=== PATIENT | female | born 1960 | race Caucasian/White ===

== ENCOUNTER 2016-04-16 12:11 | Inpatient (IN) ==
--- NOTE | 2016-04-15 21:10 | Discharge Summary ---
<Elliott Valdovinos - Last Filed: 04/20/16 14:58> - Discharge Diagnosis (1) Loosening of knee joint prosthesis Priority: Primary Status: Acute (2) Asthma Priority: Secondary Status: Chronic (3) Obesity Priority: Secondary Status: Chronic (4) Acute blood loss anemia Priority: Primary Status: Acute - Discharge Medications Home Medications: Aspirin Enteric Coated [Aspirin EC] 325 mg PO BID #42 tablet. 04/15/16 [Rx] OxyCODONE Immed Rel [Roxicodone 5 MG] 5 - 10 mg PO Q6HR PRN #40 tablet 04/15/16 [Rx] Aspirin 162 mg PO DAILY 04/16/16 [History] Budesonide/Formoterol 160/4.5 [Symbicort 160/4.5] 2 puff IH BIDR 04/16/16 [ History] Buspirone HCl [Buspar] 20 mg PO BID 04/16/16 [History] ClonazePAM [Klonopin] 1 mg PO QID PRN 04/16/16 [History] Trazodone HCl 100 mg PO HS 04/16/16 [History] Allergies/Adverse Reactions: Allergies ondansetron [From Zofran (as hydrochloride)] Adverse Reaction (Verified 11:15) Nausea Primary care physician: PCP NO - Patient Status Disposition: Home Health Service Condition: Good - Discharge Instructions Follow Up With: Elliott Valdovinos MD [Partnered Physician] - 05/15/16 9:10 am Kat Rg PAC [Physician Tail Ripper] - 04/25/16 10:15 am ([facility],PCP [Primary Care Provider] - Additional Instructions: Discharge Instructions: Total Knee Replacement Please call [facility] ([phone]), your Primary Care Physician, or report to the Emergency Room if you have any of the following symptoms: Nausea, vomiting, fever greater that 101.5, swelling, chest pain, shortness of breath, increased pain/redness/drainage/odor for your incision site, numbness/ tingling, or any other concerning symptoms. ACTIVITY:Weight-bearing as tolerated. You may progress off support (cruthches or walker) as tolerated. MEDICATIONS: Upon discharge resume your home medications. Take all the medications as prescribed. Take a stool softener if taking narcotic pain medications. Stool softeners are only effective if you drink enough fluids. Drink 6-8 glass of water or fluids a day, unless this is not allowed for another health problem. Despite using stool softeners, if you haven't had a bowel movement in 3 days, please switch to a gentle laxative. Gentle laxatives are sold over the counter. You should have a bowel movement within 24 hours, if not call the office. You will be discharged from the hospital with a prescription for pain medication. You are encouraged to decrease the use of narcotic pain medication as tolerated. Should you require a refill, please call the office. [facility] prescribes narcotic pain medication for only 4-6 weeks after surgery. If you require pain medication beyond this time periord, you may be referred to your Primary Care Physician or to the Pain Clinic for further evaluation. Plan ahead for refills on pain medication as many narcotics either need to be picked up at the office or mailed. It is best to call 48-72 hours in advance of needing a prescription refill so you don't run out of medication. To help control the post-operative pain, you may take NSAIDs (Aleve,Advil, Motrin, ibuprofen, naprosyn) or Tylenol as prescribed on the bottle in addition to the pain medication. ANTICOAGULATION (blood thinners): Continue your Aspirin, Lovenox or Coumadin as prescribed to help prevent a blood clot in the leg or in the lungs. As long as your incision remains dry and you tolerate the NSAIDs (Aleve, Advil, Motrin, ibuprofen, naprosyn), it is OK to use the NSAIDS while you are taking your anticoagulation medication. Should your incision start to drain, stop the NSAID and contact our office. Common symptoms of blood clot in the legs include: localized pain, swelling, calf tenderness, redness or discoloration of the skin. Blood clot in the lung symptoms include: shortness of breath, rapid pulse, sweating, and chest pain that worsens with deep breathing, coughing up blood, lightheadedness, feelings of anxiety. If you experience any of these symptoms notify your physician immediately, go to the emergency room, or if having trouble breathing, call 911. WOUND CARE: Leave the dressing on for 7 days. You may change the dressing if it becomes saturated greater than 50%. You can shower but not a tub bath or submerge your incision in water. Wash your hands with antibacterial soap, rinse and dry prior to any wound care. If you have noah the visiting nurse or rehab facility can remove the stapes 10-14 days after surgery and place steri- strips across the wound. Leave the steri-strips in place until they fall off on their won. You may let water from the shower run on top of the steri-stirips. If you do not have a visiting nurse or rehab facility, you will need to return to the office at 10-14 days for the noah to be removed. FOLLOW-UP: Please follow up with your surgeon in the orthopedic clinic in 4 weeks from the day of surgery. If you have noah that need to be removed, you will need to come back to the office in 10-14 days from the day of surgery. - Hospital Course Hospital course: Ms. Gutiérrez is a 56 year old female - Time Spent with Patient Total time spent providing and/or coordinating discharge services: <Kat Rg - Last Filed: 04/26/16 12:36> Date of Encounter: 04/21/16 Time of Encounter: 12:35 - Discharge Diagnosis (1) Loosening of knee joint prosthesis Status: Acute Qualifiers: Qualified Code(s): T84.038D - Mechanical loosening of other internal prosthetic joint, subsequent encounter; Z96.659 - Presence of unspecified artificial knee joint (2) Asthma Priority: Secondary Status: Chronic Qualifiers: Qualified Code(s): J45.909 - Unspecified asthma, uncomplicated (3) Obesity Priority: Secondary Status: Chronic Qualifiers: Qualified Code(s): E66.9 - Obesity, unspecified Primary care physician: PCP NO - Patient Status Functional capacity at discharge: uses cane/walker Overall status at discharge: patient is back to baseline - Diet and Activity Diet: advance to your usual diet - Hospital Course Hospital course: Ms. Gutiérrez is a 56 year old female - Time Spent with Patient Total time spent providing and/or coordinating discharge services:
--- NOTE | 2016-04-16 12:20 | History & Physical Report ---
Date of Encounter: 04/16/16 Time of Encounter: 12:19 24 Hour HP Update - Instructions Instructions: If the History and Physical is less than 30 days old and was completed prior to A.M. admission and or procedure and has NOT been updated on calendar day of procedure please complete this update prior to performing procedure. - Update Patient reports changes in Medical Condition: No Changes in assessment/condition: No Changes in Medication: No Preop tests/diagnostics Reviewed: Yes Surgery Remains Indicated: Yes Consent for Planned Operative Procedure(s) Verified: Yes - Pre-Operative Checklist Preoperative Checklist Indicated: No Prophylactic Antibiotic Ordered: Yes Is VTE Prophylaxis Indicated?: Yes
[2016-04-16] MEDS ORDERED: CeFAZolin Pre 2,000 MG/100 ML 2,000 MG/100 ML BAG IVPB ONE (12:27)
[2016-04-16] MEDS ORDERED: Albuterol 2.5 MG/3 ML NEBULIZER IH ONE (12:27)
[2016-04-16] MEDS ORDERED: Ringers Solution, Lactated 1,000 ML IVC SCH (12:30)
[2016-04-16] MEDS ORDERED: *HR* Midazolam HCl 2 MG/2 ML VIAL ONE ×2 (13:30)
[2016-04-16] MEDS ORDERED: *HR* Propofol 200 MG/20 ML VIAL IVP ONE (13:30)
[2016-04-16] MEDS ORDERED: *HR* FentaNYL (PF) 100 MCG/2 ML VIAL ONE (13:30)
[2016-04-16] MEDS ORDERED: diazePAM 5 MG TABLET PO ONE (13:54)
[2016-04-16] MEDS ORDERED: Famotidine 20 MG/2 ML VIAL IVP ONE (13:54)
--- NOTE | 2016-04-16 13:58 | Anesthesia Evaluation PreOp ---
Date of Encounter: 04/16/16 Time of Encounter: 13:50 - Past History Planned Operation: Left TKA Revision Cardiac History: Denies any Significant Hx Pulmonary History: Asthma CARE TRANSITIONS MANAGER History: Denies Any Significant HX Other Medical History: Other (Anxiety) Anesthesia History: No Prior Anesthetic Complications : No Alcohol Use: none Drug use: none Medications and Allergies Aspirin Enteric Coated [Aspirin EC] 325 mg PO BID #42 tablet. 04/15/16 [Rx] OxyCODONE Immed Rel [Roxicodone 5 MG] 5 - 10 mg PO Q6HR PRN #40 tablet 04/15/16 [Rx] Aspirin 162 mg PO DAILY 04/16/16 [History] Budesonide/Formoterol 160/4.5 [Symbicort 160/4.5] 2 puff IH BIDR 04/16/16 [ History] Buspirone HCl [Buspar] 20 mg PO BID 04/16/16 [History] ClonazePAM [Klonopin] 1 mg PO QID PRN 04/16/16 [History] Oxycodone HCl/Acetaminophen [Percocet 5-325 mg Tablet] 1 each PO Q6H PRN [History] Trazodone HCl 100 mg PO HS 04/16/16 [History] Allergies No Known Allergies Allergy (Verified 04/16/16 13:34) - Meds/Allergy Pre-op Review Medications Reviewed: Yes Allergies Reviewed: Yes Beta Blockers on Current Med List: No Anesthesia Results - Labs Laboratory Tests 04/04/16 04/04/16 11:05 11:05 Hgb 13.7 Hct 42.1 Sodium 137 Potassium 4.6 H BUN 19 Creatinine 0.84 Anesthesia Exam O2 Sat Height 1.65 m Height 1.65 m Height 1.65 m Weight 98.43 kg Weight 98.43 kg Weight 98.43 kg O2 Sat by Pulse Oximetry 97 O2 Sat by Pulse Oximetry 97 Vital Signs Temp Pulse Resp BP Pulse Ox 98.2 F 88 18 114/73 97 04/16/16 12:31 04/16/16 12:31 04/16/16 12:31 04/16/16 12:31 04/16/16 12:31 Height: 5'4 Weight: 216 lbs NPO (# of Hours): MN - HEENT Pupil (Motor): Pupils equal, EOMI Mallampati: II Teeth: Normal Oral Opening: Greater than 3 - CARE TRANSITIONS MANAGER LOC: Oriented CARE TRANSITIONS MANAGER Motor: Normal RUE, Normal LUE, Normal RLE, Normal LLE, Normal Face CARE TRANSITIONS MANAGER Sensory: Normal: RUE, LUE, RLE, LLE, Face - Cardiac Rhythm: Regular Murmur: None JVD: No Carotid Bruit: No - Pulmonary Breath Sounds: bilateral Clear Respiratory Effort: Symmetrical Anesthesia Assess/Plan ASA Score: 2 Modified Pam Scale for Level of Consciousness: Cooperative, oriented, and tranquil Anesthetic Plan: General, Regional Monitoring Plan: Standard Monitors Recovery Plan: PACU (Discussed GA and RA, agrees to proceed)
[2016-04-16] MEDS ORDERED: Lidocaine -MPF 2% 2 ML VIAL ONE (14:17)
[2016-04-16] MEDS ORDERED: Tetracaine/PF 20 MG/2 ML AMPUL SPINA ONE (14:21)
--- NOTE | 2016-04-16 14:38 | Anesthesia Procedures ---
Date of Encounter: 04/16/16 Time of Encounter: 14:00 Procedures: Anesthesia - Nerve Block Procedure Date: 04/16/16 Time: 14:35 Pre-op Diagnosis: Loosening Left TKA Surgical Procedure: TKA Revision Checklist: Correct Patient Identifier Correct side: Left Blood Thinner: No Monitor Applied: EKG, BP, Pulse Oximetry Supplemental Oxygen via Nasal Cannula (L/min): 2 Sedation: Versed (mg): 2 Sedation: Fentanyl (mcg): 100 Indication: Post Op Analgesia Pre-op Neuro Deficits: No Block Type: Femoral Catheter placed: No Depth at skin (cm): 3 Sterile Technique: Yes Ultrasound used: Yes Anatomy identified: Yes Visual spread of Local: Yes Neuro Stimulation: Yes Nerve Stimulator Range: 0.2 - 0.4 mA Blood on Needle Aspiration: No Smooth Injection of Local: Yes Pain with Injection of Local: No Prep: Chlorhexadine Needle: 22 x 50 mm Stimuplex Local: Tetracaine (40), Other (Bupivacaine 0.5%) Volume (cc): 30 Number of Attempts: 1 Complications: None/effective block Vitals: Vital Signs/O2 Sat/Glucose, Most Current Temp Pulse Resp BP Pulse Ox 04/16/16 14:30 78 16 129/74 97 04/16/16 13:02 18 114/73 97 04/16/16 12:31 98.2 F 88 18 114/73 97
[2016-04-16] MEDS ORDERED: *HR* HYDROmorphone (PF) 1 MG/ML SYRINGE IVP PRN (15:09)
[2016-04-16] MEDS ORDERED: *HR* HYDROmorphone 2 MG/ML SYRINGE ONE (15:38)
--- NOTE | 2016-04-16 16:07 | Orthopedic Operative Note ---
Date of procedure: 04/16/16 Pre-op diagnosis: Aseptic loosening left total knee, significant synovitis. Post-op diagnosis: same Procedure: Procedure: Left revision total knee Estimated blood loss: 500 mL Hardware: Biomet 360 femur: Left 65 left lateral 5 mm distal augment, 16 x 80 stem. Tibia 71, extra small OsteoSet sleeve, 12 x 40 stem, 20 constrained Diana , 37 patella. Exam Under anesthesia: Full extension and flexion no instability Procedural Notes: Significant synovitis loosening of femur and tibia.. Operative procedure: The patient was brought to the operating room and placed on the operating room table. After general anesthesia was administered the operative knee was examined. Findings were noted in the exam under anesthesia. The operative extremity was prepped and draped in sterile surgical fashion. The patient received IV antibiotics prior to skin incision. A standard midline incision was made centered over the patella through the old incision. The incision was made through the skin and subcutaneous tissue. A medial parapatellar tendon approach was performed. Care was taken to preserve tissue along the medial aspect of the patella. And to protect the patella tendon. The deep MCL was released off the medial tibia. The infra patella fat pad was excised. Fluid was encountered this was normal joint fluid, Cultures were obtained and gram sent. Patient does have extensive synovitis as well as excised with an extensive synovectomy. The knee was brought into flexion the poly-was removed. The interface between the patient's femoral component and distal femur were disrupted with a osteotome and oscillating saw. Femoral component was removed removed patient had bone loss on the distal lateral femur. Attention was then turned to the tibial component. The same technique was used to remove the tibial component by disrupting the interface between the patient's tibial component and the patients proximal tibia. The tibial component was loose, was removed without significant bone loss. The tibia was sized to a 71, it was broached to a extra small sleeve, it fit a 12 x 40 stem. Trial had good fit and fixation. The femur was sized to a 65, was reamed up to a 14 x 80. The finishing guide was seated and the box cut was made. The trial had good fit and fixation. Both trial components were seated and the 20 constrained Diana was seated and secured. The knee had full flexion and full extension with no instability. The patella was everted, the patella was transected below the patella component. It was sized to a 37 the guide was seated the lug holes are drilled. Patella had excellent patella tracking. The trial components were removed. The knee sat for 2 minutes with a Betadine saline solution. It was irrigated out with 2 L of pulse irrigation. The components were assembled on the back table, the tibia cemented first followed by the femur. The 20 constrained liner was seated and secure. The knee was brought to full extension while the cement hardened. The patella was cemented and held in place with patellar holding clamp. After the cement hardened the knee was irrigated out again. The extensor mechanism was closed with a running #2 Fiberwire suture and a running #2 PDS suture. The deep tissue was irrigated and closed deep with #1 PDS suture superficially with 0 PDS suture. The skin was closed with Dermabond and skin noah. The patient was placed in a sterile dressing and postoperative brace. They were extubated and transferred to recovery room in stable condition. Anesthesia: GETA Surgeon: Elliott Valdovinos Condition: stable Disposition: PACU
[2016-04-16 17:24] LABS: Hematocrit 35.8 % (35.3-44.9); Hemoglobin 11.6 g/dL (11.5-15.4)
[2016-04-16] MEDS ORDERED: *HR* Promethazine 25 MG/ML VIAL ONE (17:47)
[2016-04-16] MEDS ORDERED: *HR* Promethazine 25 MG/ML VIAL IVP PRN (17:54)
[2016-04-16] MEDS ORDERED: *HR* Enoxaparin 30 MG/0.3 ML SYRINGE SQ SCH (18:00)
--- NOTE | 2016-04-16 18:09 | Anesthesia Evaluation Post Op ---
Date of Encounter: 04/16/16 Time of Encounter: 18:07 - Vital Signs Vital Signs: Vital Signs/O2 Sat/Glucose, Most Current Temp Pulse Resp BP Pulse Ox 04/16/16 18:05 97.1 F L 76 16 121/78 95 04/16/16 17:55 97.0 F L 71 16 126/84 95 04/16/16 17:45 97.0 F L 67 16 120/74 97 04/16/16 17:35 97.0 F L 74 16 154/87 97 04/16/16 17:25 97.0 F L 83 16 153/94 97 04/16/16 17:15 97.0 F L 75 16 133/70 96 04/16/16 17:05 97.0 F L 91 16 136/62 93 L 04/16/16 16:55 84 16 105/64 98 04/16/16 16:45 105 16 145/76 96 04/16/16 16:35 97.2 F L 96 12 141/81 94 L 04/16/16 14:55 73 16 123/71 98 04/16/16 14:38 76 16 112/67 98 04/16/16 14:30 78 16 129/74 97 - Lungs Lungs: Clear Ascult./Percussion - Airway Airway: Non-obstructed - Cardiovascular Regular Rate - Mental Status Mental Status: Alert & Oriented, Answers Appropriately, Asleep with brisk response to light stimulation - Pain Pain Scale: 0 ('just some pressure') Pain Scale used: Numeric (1 - 10) - Nausea Vomiting Nausea Vomiting: Responds to treatment with IV Meds - Hydration Hydration: Ice chips, Has not voided - Discharge PostOp Status: Transfer Patient to floor Anes Supervising Prov Stmt: Pt seen/evaluated, Vss and pt has met criteria for discharge to floor. - MD Kristina
[2016-04-16] MEDS ORDERED: Naloxone 0.4 MG/ML INJ IVP PRN (18:12)
[2016-04-16] MEDS ORDERED: Temazepam 15 MG CAPSULE PO PRN (18:12)
[2016-04-16] MEDS ORDERED: Sennosides 8.6 MG TABLET PO PRN (18:12)
[2016-04-16] MEDS ORDERED: *HR* OxyCODONE Immed Rel 5 MG TABLET PO PRN (18:12)
[2016-04-16] MEDS ORDERED: MOM Conc 10 ML UD.LIQ PO PRN (18:12)
[2016-04-16] MEDS ORDERED: Ondansetron 4 MG/2 ML VIAL IVP PRN (18:12)
[2016-04-16] MEDS ORDERED: Albuterol Neb 1.25 MG/3 ML VIAL IH ONE (18:12)
[2016-04-16] MEDS: Ringers Solution, Lactated 1,000 ML IVC SCH (18:47)
[2016-04-16] MEDS: BUSPIRONE HCL PO SCH (20:23)
[2016-04-16] MEDS: traZODone 50 MG TABLET PO SCH (20:23)
--- NOTE | 2016-04-16 20:25 | Event Note ---
Date of Encounter: 04/16/16 Time of Encounter: 18:00 Patient was brought from PACU with low resps and I went to evaluate patient. She was lethargic, with shallow breathing. Phenergan was given in PACU. Narcan was given, patient was more responsive and breathing on her own within 5 minutes of medication implementation. Will monitor closely.
[2016-04-16] MEDS ORDERED: BUSPIRONE HCL 20 MG PO SCH (21:00)
[2016-04-16] MEDS: Budesonide/Formoterol 160/4.5 MDI IH SCH (21:01)
[2016-04-16] MEDS: ceFAZolin 2,000 MG in D5% in Water 100 ML IVPB SCH (23:35)
[2016-04-17] MEDS: *HR* OxyCODONE Immed Rel 5 MG TABLET PO PRN ×4 (00:51→19:20)
[2016-04-17] MEDS: clonazePAM 1 MG TABLET PO PRN ×3 (05:47→19:50)
[2016-04-17 06:02] LABS: Hematocrit 33.5 % (35.3-44.9); Hemoglobin 11.1 g/dL (11.5-15.4)
[2016-04-17] MEDS: Ringers Solution, Lactated 1,000 ML IVC SCH (06:13)
[2016-04-17] MEDS: ceFAZolin 2,000 MG in D5% in Water 100 ML IVPB SCH (06:14)
[2016-04-17] MEDS: *HR* Enoxaparin 30 MG/0.3 ML SYRINGE SQ SCH ×2 (06:14→18:17)
[2016-04-17 06:20] LABS: BUN/Creatinine Ratio 14 (6-26); Blood Urea Nitrogen 10 mg/dL (7-20); Carbon Dioxide 24 mEq/L (19-29); Chloride 104 mEq/L (98-109); Glucose 156 mg/dL (70-99); Osmolality,Calculated 286 (280-300); Potassium 4.3 mEq/L (3.5-4.5); Sodium 137 mEq/L (136-145); eGFR For African Americans > 60 (> 60); eGFR For Non-African Americans > 60 (> 60)
--- NOTE | 2016-04-17 06:38 | Orthopedics Progress Note ---
Date of Encounter: 04/17/16 Time of Encounter: 06:37 - Assessment and Plan (1) Loosening of knee joint prosthesis Current Visit: Yes Status: Acute Qualifiers: Encounter type: subsequent encounter Qualified Code(s): T84.038D - Mechanical loosening of other internal prosthetic joint, subsequent encounter; Z96.659 - Presence of unspecified artificial knee joint (2) Asthma Current Visit: Yes Status: Chronic Qualifiers: Asthma severity: unspecified severity Asthma complication type: uncomplicated Qualified Code(s): J45.909 - Unspecified asthma, uncomplicated (3) Obesity Current Visit: Yes Status: Chronic Qualifiers: Obesity type: unspecified obesity type Obesity severity: unspecified obesity severity Qualified Code(s): E66.9 - Obesity, unspecified Subjective Interval history: Patient was seen this morning had a fall earlier incision intact dressing change. Afebrile vital signs stable. Operative extremity: Neurovascularly intact Dressing clean dry and intact Calves nontender Assessment and plan: Continue with postoperative care Hematocrit 33 Objective Vital signs: Vital Signs Temp Pulse Resp BP Pulse Ox 04/17/16 04:03 97.6 F 67 15 97/60 96 04/16/16 23:08 97.7 F 65 12 100/63 97 04/16/16 21:30 97.8 F 67 12 102/66 04/16/16 21:01 20 98 04/16/16 20:26 97.4 F L 72 14 102/65 97 04/16/16 19:33 97.9 F 65 12 110/72 99 04/16/16 19:10 97.9 F 66 14 119/78 99 04/16/16 18:48 97.8 F 63 14 124/74 99 04/16/16 18:27 97 04/16/16 18:18 97.8 F 76 7 117/81 96 04/16/16 18:05 97.1 F L 76 16 121/78 95 04/16/16 17:55 97.0 F L 71 16 126/84 95 04/16/16 17:45 97.0 F L 67 16 120/74 97 04/16/16 17:35 97.0 F L 74 16 154/87 97 04/16/16 17:25 97.0 F L 83 16 153/94 97 04/16/16 17:15 97.0 F L 75 16 133/70 96 04/16/16 17:05 97.0 F L 91 16 136/62 93 L 04/16/16 16:55 84 16 105/64 98 04/16/16 16:45 105 16 145/76 96 04/16/16 16:35 97.2 F L 96 12 141/81 94 L 04/16/16 14:55 73 16 123/71 98 04/16/16 14:38 76 16 112/67 98 04/16/16 14:30 78 16 129/74 97 04/16/16 13:02 18 114/73 97 04/16/16 12:31 98.2 F 88 18 114/73 97 Intake and Output 04/16/16 04/16/16 04/17/16 15:59 23:59 07:59 Intake Total 100 / 100 1100 / 1100 Output Total 900 / 900 300 / 300 Balance 100 / 100 -900 / -900 800 / 800 Intake: IV Fluids 100 / 100 1100 / 1100 Lactated Ringers 1,000 ML 1000 / 1000 @ 75 mls/hr IVC .[id number] BERNARD Rx#:[id number] Ancef 2,000 MG In 100 / 100 Dextrose 5% 100 ML @ 200 mls/hr IVPB Q8H BERNARD Rx#: [id number] Ancef Premix 2,000 MG/100 100 / 100 ML 2,000 mg In 100 ml @ 200 mls/hr IVPB PREOP ONE Rx#:[id number] Output: Urine 400 / 400 300 / 300 Estimated Blood Loss 500 / 500 Other: Weight 98.43 kg - Labs CBC & BMP: 04/17/16 05:12 04/17/16 05:12 Labs: Abnormal lab results Hgb 11.1 g/dL (11.5-15.4) L 04/17/16 05:12 Hct 33.5 % (35.3-44.9) L 04/17/16 05:12 Glucose 156 mg/dL (70-99) H 04/17/16 05:12 - VTE Documentation of Mechanical Device: Venous foot pump, device Consult Discharge Plan - Plan Referrals: NO,PCP [Primary Care Provider] -
[2016-04-17] MEDS: BUSPIRONE HCL PO SCH ×2 (08:06→19:51)
[2016-04-17] MEDS: Aspirin 81 MG TAB.CHEW PO SCH (08:06)
[2016-04-17] MEDS: Budesonide/Formoterol 160/4.5 MDI IH SCH ×2 (10:44→21:11)
[2016-04-17] MEDS: Acetaminophen 325 MG TABLET PO PRN ×2 (10:56→15:03)
[2016-04-17] MEDS: Ketorolac 30 MG/ML VIAL IVP PRN ×2 (11:33→18:17)
[2016-04-17] MEDS ORDERED: Scopolamine Patch 1.5 MG PATCH.TD72 TD ONE (11:39)
[2016-04-17] MEDS ORDERED: 0.9 % Sodium Chloride 1,000 ML IVC ONE (15:12)
[2016-04-17 16:19] LABS: Hematocrit 32.9 % (35.3-44.9); Hemoglobin 10.8 g/dL (11.5-15.4)
[2016-04-17] MEDS: traZODone 50 MG TABLET PO SCH (19:51)
[2016-04-17 20:50] LABS: Hematocrit 31.5 % (35.3-44.9); Hemoglobin 10.1 g/dL (11.5-15.4)
[2016-04-18] MEDS: Ketorolac 30 MG/ML VIAL IVP PRN (00:32)
[2016-04-18] MEDS: *HR* OxyCODONE Immed Rel 5 MG TABLET PO PRN ×3 (02:59→21:04)
[2016-04-18] MEDS: Ringers Solution, Lactated 1,000 ML IVC SCH ×3 (03:01→19:27)
[2016-04-18] MEDS: clonazePAM 1 MG TABLET PO PRN ×2 (05:43→15:41)
[2016-04-18] MEDS: BUSPIRONE HCL PO SCH ×2 (05:44→21:04)
[2016-04-18 06:06] LABS: Hemoglobin 9.5 g/dL (11.5-15.4)
[2016-04-18 06:18] LABS: BUN/Creatinine Ratio 19 (6-26); Blood Urea Nitrogen 14 mg/dL (7-20); Calcium 8.6 mg/dL (8.6-10.8); Carbon Dioxide 25 mEq/L (19-29); Chloride 107 mEq/L (98-109); Glucose 134 mg/dL (70-99); Osmolality,Calculated 290 (280-300); Sodium 139 mEq/L (136-145); eGFR For African Americans > 60 (> 60); eGFR For Non-African Americans > 60 (> 60)
--- NOTE | 2016-04-18 07:41 | Orthopedics Progress Note ---
Date of Encounter: 04/18/16 Time of Encounter: 07:40 - Assessment and Plan (1) Loosening of knee joint prosthesis Current Visit: Yes Status: Acute Qualifiers: Encounter type: subsequent encounter Qualified Code(s): T84.038D - Mechanical loosening of other internal prosthetic joint, subsequent encounter; Z96.659 - Presence of unspecified artificial knee joint (2) Asthma Current Visit: Yes Status: Chronic Qualifiers: Asthma severity: unspecified severity Asthma complication type: uncomplicated Qualified Code(s): J45.909 - Unspecified asthma, uncomplicated (3) Obesity Current Visit: Yes Status: Chronic Qualifiers: Obesity type: unspecified obesity type Obesity severity: unspecified obesity severity Qualified Code(s): E66.9 - Obesity, unspecified Subjective Interval history: Patient was seen this morning had a fall earlier incision intact dressing change. Afebrile vital signs stable. Operative extremity: Neurovascularly intact Patient with bleeding overnight pulled a stable re-stapled under sterile conditions today. Calves tender Assessment and plan: Continue with postoperative care obtained Doppler hematocrit 29 Objective Vital signs: Vital Signs Temp Pulse Resp BP Pulse Ox 04/18/16 05:14 98.0 F 88 16 103/69 99 04/18/16 02:56 100/67 04/18/16 00:26 97.9 F 79 16 97/63 97 04/17/16 21:51 97.6 F 97 17 115/71 97 04/17/16 21:11 16 97 04/17/16 19:18 115/71 04/17/16 17:27 98/61 04/17/16 17:20 84/54 04/17/16 17:18 88/51 04/17/16 16:00 97.9 F 76 18 94/62 97 04/17/16 15:20 98/64 04/17/16 14:58 90 92/49 04/17/16 14:51 80 93/59 04/17/16 10:54 98.0 F 80 18 94/63 97 04/17/16 10:44 16 98 04/17/16 10:18 103/65 04/17/16 08:06 99 Intake and Output 04/17/16 04/17/16 04/18/16 15:59 23:59 07:59 Intake Total 200 / 200 1000 / 1000 Output Total 500 / 500 Balance 200 / 200 500 / 500 Intake: IV Fluids 1000 / 1000 0.9 % Sodium Chloride 1, 1000 / 1000 000 ML @ 3750 mls/hr IVC .Q16M ONE Rx#:[id number] Oral 200 / 200 Output: Urine 500 / 500 Other: Meal Lunch Percent of Meal Consumed 100% # Voids 1 1 - Labs CBC & BMP: 04/18/16 05:52 04/18/16 05:52 Labs: Abnormal lab results Hgb 9.5 g/dL (11.5-15.4) L 04/18/16 05:52 Hct 29.0 % (35.3-44.9) L 04/18/16 05:52 Glucose 134 mg/dL (70-99) H 04/18/16 05:52 - VTE Documentation of Mechanical Device: Venous foot pump, device Consult Discharge Plan - Plan Referrals: Elliott Valdovinos MD [Partnered Physician] - 05/15/16 9:10 am Kat Rg PAC [Physician Dinkey Motor Operator] - 04/25/16 10:15 am [facility],PCP [Primary Care Provider] -
[2016-04-18] MEDS: Budesonide/Formoterol 160/4.5 MDI IH SCH ×2 (08:05→20:27)
[2016-04-18] MEDS: Aspirin 81 MG TAB.CHEW PO SCH (08:27)
[2016-04-18] MEDS: *HR* HYDROmorphone (PF) 1 MG/ML SYRINGE IVP PRN ×2 (08:46→13:26)
[2016-04-18] MEDS: *HR* HYDROmorphone 2 MG/ML SYRINGE IVP PRN ×2 (17:13→23:36)
[2016-04-18] MEDS ORDERED: *HR* LORazepam 2 MG/ML VIAL IVP PRN (19:13)
[2016-04-18] MEDS: traZODone 50 MG TABLET PO SCH (21:04)
[2016-04-19] MEDS: *HR* OxyCODONE Immed Rel 5 MG TABLET PO PRN ×3 (03:44→21:12)
[2016-04-19] MEDS: Ringers Solution, Lactated 1,000 ML IVC SCH (03:48)
[2016-04-19] MEDS: Ketorolac 30 MG/ML VIAL IVP PRN (04:10)
[2016-04-19] MEDS: Aspirin 81 MG TAB.CHEW PO SCH (07:56)
[2016-04-19] MEDS: BUSPIRONE HCL PO SCH ×2 (07:56→21:11)
[2016-04-19] MEDS: Budesonide/Formoterol 160/4.5 MDI IH SCH ×2 (08:12→22:47)
--- NOTE | 2016-04-19 08:17 | Orthopedics Progress Note ---
Date of Encounter: 04/19/16 Time of Encounter: 08:16 - Assessment and Plan (1) Loosening of knee joint prosthesis Current Visit: Yes Status: Acute Qualifiers: Encounter type: subsequent encounter Qualified Code(s): T84.038D - Mechanical loosening of other internal prosthetic joint, subsequent encounter; Z96.659 - Presence of unspecified artificial knee joint (2) Asthma Current Visit: Yes Status: Chronic Qualifiers: Asthma severity: unspecified severity Asthma complication type: uncomplicated Qualified Code(s): J45.909 - Unspecified asthma, uncomplicated (3) Obesity Current Visit: Yes Status: Chronic Qualifiers: Obesity type: unspecified obesity type Obesity severity: unspecified obesity severity Qualified Code(s): E66.9 - Obesity, unspecified Subjective Interval history: Patient was seen this morning had a fall earlier incision intact dressing change. Afebrile vital signs stable. Operative extremity: Neurovascularly intact Patient with minimal bleeding overnight Nontender calves Assessment and plan: Continue with postoperative care Objective Vital signs: Vital Signs Temp Pulse Resp BP Pulse Ox 04/19/16 08:13 16 99 04/19/16 04:58 98.6 F 109 16 101/69 97 04/19/16 00:40 98.6 F 102 15 105/68 92 L 04/18/16 21:27 98.2 F 108 15 103/69 99 04/18/16 20:28 18 97 04/18/16 16:02 118/75 04/18/16 14:28 98 F 105 16 117/68 95 04/18/16 13:25 103 115/72 04/18/16 11:05 99 93/55 04/18/16 08:30 78 100/64 Intake and Output 04/18/16 04/19/16 04/19/16 23:59 07:59 15:59 Intake Total 1870 / 1870 1800 / 1800 Balance 1870 / 1870 1800 / 1800 Intake: IV Fluids 1000 / 1000 1000 / 1000 Lactated Ringers 1,000 ML 1000 / 1000 1000 / 1000 @ 125 mls/hr IVC .Q8H B[facility]ARD Rx#:[id number] Oral 870 / 870 800 / 800 Other: Meal Dinner Percent of Meal Consumed 100% # Voids 1 - Labs CBC & BMP: 04/18/16 05:52 04/18/16 05:52 Labs: Abnormal lab results Hgb 9.5 g/dL (11.5-15.4) L 04/18/16 05:52 Hct 29.0 % (35.3-44.9) L 04/18/16 05:52 Glucose 134 mg/dL (70-99) H 04/18/16 05:52 - VTE Documentation of Mechanical Device: Venous foot pump, device Consult Discharge Plan - Plan Referrals: Elliott Valdovinos MD [Partnered Physician] - 05/15/16 9:10 am Kat Rg PAC [Physician Fabrication Lead] - 04/25/16 10:15 am [facility],PCP [Primary Care Provider] -
[2016-04-19 08:22] LABS: Hemoglobin 8.4 g/dL (11.5-15.4)
[2016-04-19 08:32] LABS: BUN/Creatinine Ratio 10 (6-26); Blood Urea Nitrogen 8 mg/dL (7-20); Calcium 8.8 mg/dL (8.6-10.8); Carbon Dioxide 25 mEq/L (19-29); Chloride 102 mEq/L (98-109); Glucose 170 mg/dL (70-99); Osmolality,Calculated 286 (280-300); Sodium 137 mEq/L (136-145); eGFR For African Americans > 60 (> 60); eGFR For Non-African Americans > 60 (> 60)
[2016-04-19 08:33] LABS: Potassium 4.1 mEq/L (3.5-4.5)
[2016-04-19] MEDS ORDERED: Furosemide 20 MG/2 ML VIAL IV ONE (10:09)
[2016-04-19] MEDS ORDERED: 0.9 % Sodium Chloride 250 ML IVC PRN (10:09)
[2016-04-19] MEDS ORDERED: Furosemide 20 MG/2 ML VIAL IVP ONE ×2 (10:15→17:30)
[2016-04-19] MEDS: clonazePAM 1 MG TABLET PO PRN (15:30)
[2016-04-19] MEDS: *HR* HYDROmorphone 2 MG/ML SYRINGE IVP PRN ×3 (15:38→22:45)
--- NOTE | 2016-04-19 17:53 | Venous Imaging Report ---
LE Venous Duplex Patient Name:Bea Gutiérrez Order Number:[id number] Procedure Date:04/18/2016 Date:1960ge:56 yrs Gender:Female Location:[facility] Room #: 3NE25 Ramp Jockey:Ghazal Matamoros Referring MD:Elliott Valdovinos MD art therapy specialist:None Reading MD:Raoul Villareal MD Primary Indications:r/o DVT Secondary Indications: Risk Factors Yes/No Hx of Superficial Phlebitis Recent knee surgery-LLE Impressions: Normal left lower extremity deep and superficial venous exam. Normal contralateral common femoral vein. Findings Prior Study: No prior study available for comparison. Lower Extremity Venous Duplex Side Vein Compress Spontaneous Flow Augment Diameter (cm) Depth (cm) Left Distal Iliac Normal Yes Phasic Yes Left Common Femoral Normal Yes Phasic Yes Left Superficial Femoral Normal Yes Phasic Yes Left Popliteal Normal Yes Phasic Yes Left Posterior Tibial Normal Yes Phasic Yes Left Peroneal Normal Yes Phasic Yes Left Saphenofemoral [place] Normal Yes Phasic Yes Left Great Saphenous Normal Yes Phasic Yes Left Lesser Saphenous Normal Yes Phasic Yes Right Common Femoral Normal Yes Phasic Yes Updated by Roaul Villareal MD on 04/19/2016 5:49:51 PM electronically signed on 04/19/2016 5:50:15 PM with status of Final
[2016-04-19] MEDS ORDERED: 0.9 % Sodium Chloride 250 ML ONE (20:14)
[2016-04-19] MEDS: traZODone 50 MG TABLET PO SCH (21:12)
[2016-04-20] MEDS: *HR* OxyCODONE Immed Rel 5 MG TABLET PO PRN ×4 (04:09→17:14)
[2016-04-20 06:29] LABS: Hematocrit 31.1 % (35.3-44.9)
[2016-04-20 06:30] LABS: Hemoglobin 10.3 g/dL (11.5-15.4)
--- NOTE | 2016-04-20 06:31 | Orthopedics Progress Note ---
Date of Encounter: 04/20/16 Time of Encounter: 06:30 - Assessment and Plan (1) Loosening of knee joint prosthesis Current Visit: Yes Status: Acute Qualifiers: Qualified Code(s): T84.038D - Mechanical loosening of other internal prosthetic joint, subsequent encounter; Z96.659 - Presence of unspecified artificial knee joint (2) Asthma Current Visit: Yes Status: Chronic Qualifiers: Qualified Code(s): J45.909 - Unspecified asthma, uncomplicated (3) Obesity Current Visit: Yes Status: Chronic Qualifiers: Qualified Code(s): E66.9 - Obesity, unspecified (4) Acute blood loss anemia Current Visit: Yes Status: Acute Subjective Interval history: Patient was seen this morning minimal drainage Afebrile vital signs stable. Operative extremity: Neurovascularly intact Patient with minimal bleeding overnight Nontender calves Assessment and plan: Continue with postoperative care Hematocrit 26 yesterday patient received 2 units of blood repeat labs this morning Objective Vital signs: Vital Signs Temp Pulse Resp BP Pulse Ox 04/20/16 04:00 98.3 F 101 17 116/73 92 L 04/19/16 23:42 99.2 F 93 14 102/66 96 04/19/16 22:51 16 91 L 04/19/16 22:04 99.3 F 93 16 102/66 97 04/19/16 21:07 98.6 F 95 15 103/67 96 04/19/16 20:52 99.4 F 102 16 93/63 04/19/16 20:00 98.5 F 102 17 115/78 95 04/19/16 16:55 99.8 F H 104 18 108/66 97 04/19/16 14:29 98.0 F 87 16 98/67 99 04/19/16 14:24 99.2 F 108 17 04/19/16 14:17 98.6 F 108 18 106/67 04/19/16 10:48 98.0 F 84 18 99/63 99 04/19/16 09:00 98.1 F 103 18 115/69 95 04/19/16 08:13 16 99 Intake and Output 04/19/16 04/19/16 04/20/16 15:59 23:59 07:59 Intake Total 1150 / 1150 1025 / 1025 200 / 200 Output Total 800 / 800 250 / 250 Balance 350 / 350 1025 / 1025 -50 / -50 Intake: Oral 1150 / 1150 375 / 375 200 / 200 Blood Product 0 / 0 650 / 650 Rbcs Leuko Poor As-1 300 / 300 Unit [id number] Rbcs Leuko Poor As-3 Ph 0 / 0 350 / 350 Unit [id number] Output: Urine 800 / 800 250 / 250 Other: # Voids 1 1 - Labs CBC & BMP: 04/19/16 08:12 04/19/16 08:12 Labs: Abnormal lab results Hgb 8.4 g/dL (11.5-15.4) L 04/19/16 08:12 Hct 26.0 % (35.3-44.9) L 04/19/16 08:12 Glucose 170 mg/dL (70-99) H 04/19/16 08:12 - VTE Documentation of Mechanical Device: Venous foot pump, device Consult Discharge Plan - Plan Referrals: Elliott Valdovinos MD [Partnered Physician] - 05/15/16 9:10 am Kat Rg PAC [Physician Instrument Adjuster] - 04/25/16 10:15 am ZAID,PCP [Primary Care Provider] -
[2016-04-20] MEDS: Aspirin 81 MG TAB.CHEW PO SCH (08:35)
[2016-04-20] MEDS: BUSPIRONE HCL PO SCH ×2 (08:36→20:55)
[2016-04-20] MEDS: clonazePAM 1 MG TABLET PO PRN ×2 (08:41→17:15)
[2016-04-20] MEDS: Budesonide/Formoterol 160/4.5 MDI IH SCH ×2 (11:02→20:44)
[2016-04-20] MEDS: traZODone 50 MG TABLET PO SCH (20:55)
[2016-04-21] MEDS: *HR* OxyCODONE Immed Rel 5 MG TABLET PO PRN ×2 (01:30→06:44)
[2016-04-21 04:07] LABS: Hematocrit 33.5 % (35.3-44.9); Hemoglobin 10.7 g/dL (11.5-15.4)
[2016-04-21 07:00] VITALS: BP 121/86
== END 2016-04-21 08:40 | disposition home health service (06) | DRG 467 ==
LOC: SAMDAY 12:11 → 3NENU 17:41
PROVIDERS: ADMIT Orthopaedic Surgery; ATTEND Orthopaedic Surgery